=== PATIENT | male | born 1970 | race Caucasian/White ===

== ENCOUNTER 2023-03-24 07:58 | Emergency (ER) | payer OTHER, SELFPAY ==
[2023-03-24 08:03] VITALS: BP 161/91
--- NOTE | 2023-03-24 08:05 | ED.GENMED ---
History of Present Illness
General
Chief Complaint: Abdominal Pain
Time Seen by Provider: 03/24/23 08:05
Travel History
Have you had any contact with someone who has COVID-19?: No
Do you have any symptoms of coronavirus? Fever > 100 degrees, chills, cough, shortness of breath, sore throat, loss of taste or smell, muscle aches, or headache?: No
History of Present Illness
History of Present Illness:
HPI: Patient presents with abdominal pain. The pain is primarily localized to the right upper quadrant. He states he has had right upper quadrant pain in the past but this is different. He tells me that he had a lesion on his liver in September and
spoke to a GI friend of his at [place] who recommended that he has repeat CT imaging for further evaluation. The patient has no nausea or vomiting. He has chronic lightheadedness over the past 9 months. He also has some discomfort in the lower
extremities and did have an EMG in the past. He states he drinks 1 or 2 beers daily.
EXAM:
GENERAL: Well appearing in no distress
HEENT: Moist oral mucosa
CARDIOVASCULAR: No murmurs, normal heart rate and rhythm, No chest wall tenderness
PULMONARY: No respiratory distress, breath sounds are clear and equal
ABDOMEN: Soft with no peritoneal signs, minimal right upper quadrant tenderness
NEUROLOGIC: Excellent strength all extremities, no coordination deficits
PSYCHIATRIC: Appropriate mental status, normal insight and judgement
EXTREMITIES: Nontender, no edema, moves all extremities equally
SKIN: Small pruritic lesions to the lower extremities mild
ED COURSE:
8:15 AM: I initially evaluated patient
NUMBER AND COMPLEXITY OF PROBLEMS ADDRESSED AT THE ENCOUNTER
� Chronic conditions affecting care: High blood pressure, hyperlipidemia, history of daily alcohol use
� Acute Exacerbation and/or Progression of Chronic Illness: This is an acute problem
� Differential Diagnosis includes: Biliary colic, cholecystitis, worsening liver lesion as previously seen
AMOUNT AND/OR COMPLEXITY OF DATA TO BE REVIEWED AND ANALYZED
� I performed an independent evaluation of and my interpretation is:
EKG: Sinus 85, normal axis, baseline artifact, no acute ST abnormality, no change from 02/25/2023
CT: CT imaging shows stable in appearance of liver lesions the larger of which suggest hemangioma
X-rays:
Laboratory Studies: CBC normal, mild transaminase elevation similar to prior, normal total bili and normal lipase
Other:
� Review of other/old records: Abdominal ultrasound on 11/11/2022 showed no gallstones with mild gallbladder wall thickening; he had a CT that same day that showed no PE
� Clinical information was obtained by an independent historian: None needed
� Prescriptions/Medications Considered but not given:
� Further testing considered but not performed:
RISK OF COMPLICATIONS AND/OR MORBIDITY OR MORTALITY OF PATIENT MANAGEMENT
� Social determinants of health affecting care: Lives at home, drinks 1-2 beers daily
� Discussion with other providers:
� Escalation of care including admission/observation vs risk of discharge considered: The patient states he was concerned about a lesion that he had on his liver that was seen this past September. The records show that the patient
had what appeared to be a small hemangioma. The patient denies any chest pain. However given the location of the pain will obtain EKG. on reassessment at 12 PM, the patient is well-appearing and comfortable. He even thinks that his symptoms could
be 'in my head'. He is very well-appearing at time of discharge. He did note a small rash that has a petechial kind of appearance to the bilateral lower extremities however his platelet count is normal and he is well-appearing..
Past History
Past History
ED Past Medical History: HTN, Hypercholesterolemia, Psychiatric (anxiety) and Other (Seasonal allergies, anxiety/depression, long history of dizziness and vertigo.); Negative NIDDM
ED Past Surgical History: None
Social History
Tobacco: Smoker
Alcohol: Daily ('6-12' beers daily)
Drug: None
Personal:
Living: with family
Employment: Employed
Family History
Family History: Negative Early CAD
Phy Exam
Physical Exam
Physical Exam:
See HPI
Course
Orders/Labs/Results
Orders:
Orders
03/24/23 08:15
CT Abd/pelvis W Iv Cont Urgent
Comment:
Reason For Exam: R pain; had lesion R liver 09/2022
03/24/23 08:16
Electrocardiogram (*1) Urgent
Reason for Study: Chest Pain
EKG- Treatment ONCE
0.9% Sodium Chloride 1000 ml [Nss] 1,000 ml IV BOLUS
03/24/23 09:10
Complete Blood Count/With Diff Urgent
Comprehensive Metabolic Panel Urgent
Lipase Urgent
Abnormal Lab Results
03/24/23
09:10
MCH 31.9 H pg
(27.0-31.0)
Monocytes % 10.0 H %
(1.7-9.3)
Glucose 132 H mg/dl
(70-99)
AST 73 H U/L
(17-59)
ALT 118 H U/L
(0-50)
03/24/23 09:10
03/24/23 09:10
Vital Signs
Initial and Last Documented VS:
Initial Vital Signs
Temp Pulse Resp BP Pulse Ox
98.0 F 95 18 161/91 98
03/24/23 08:03 03/24/23 08:03 03/24/23 08:03 03/24/23 08:03 03/24/23 08:03
Last Documented Vital Signs
Temp Pulse Resp BP Pulse Ox
98.0 F 80 14 142/89 98
03/24/23 08:03 03/24/23 10:58 03/24/23 10:58 03/24/23 10:58 03/24/23 08:03
*Critical Care Note
Total Time (30-74mins, 75-104mins- exclusive of procedures): Not Applicable
ED Attending Note
-
Portions of this chart may have been created with voice recognition software.� Occasional wrong word or��sound alike� substitutions may have occurred due to the inherent limitations of voice recognition software.
Discharge Plan
Departure
Patient Disposition: Home (Routine Discharge)
Date of Disposition: 03/24/23
Time of Disposition: 11:59
Patient with high blood pressure during this ER visit?: Yes
Discharge Problem:
Abdominal pain
Instructions: Abdominal Pain, BLOOD PRESSURE
Prescriptions:
No Action
alprazolam 0.25 MG tablet
0.25 mg PO BIDPRN MDD P PRN (Reason: ANXIETY)
atorvastatin 20 mg Tablet
20 mg PO DAILY
amlodipine 10 mg tablet
10 mg PO DAILY Qty: 30 0RF
Referrals:
Toya Nails, [Family Provider] -
Activity Restrictions/Additional Instructions:
The cause of your pain is unclear. You have 2 small liver lesions 1 of which looks like a hemangioma, the other 1 is so small the radiologist could not state what he thinks it is but it does not appear to be the cause of your pain. Your platelet
counts are normal. Your liver numbers are slightly abnormal but similar to prior. Return here if worse.
Interventions
Interventions:
*Risk Screen - Suicide Last Done: 03/24/23 08:03
*General Assessment Last Done: 03/24/23 08:03
*Neglect/Abuse Screening Last Done: 03/24/23 08:03
ED- Fall Risk Assessment Last Done: 03/24/23 09:10
WC-Ofnuim-Odnaqtvmwt Assessment Last Done: 03/24/23 09:10
[2023-03-24] MEDS: NSS 1000 IV (09:13)
[2023-03-24 09:35] LABS: % Eosinophils 2.6 % (0-6); % Lymphocytes 41.3 % (20.5-51.1); % Neutrophils 45.1 % (42.2-75.2); Absolute Basophils 0.1 10^3/uL (0-0.2); Absolute Eosinophils 0.1 10^3/uL (0-0.7); Absolute Lymphocytes 2.1 10^3/uL (1.2-3.4); Absolute Monocytes 0.5 10^3/uL (0.1-0.6); Absolute Neutrophils 2.3 10^3/uL (1.4-6.5); Hematocrit 42.9 % (39.0-52.0); Hemoglobin 15.2 g/dL (13.0-18.0); Mean Corp Hgb Conc. 35.4 g/dL (33.0-37.0); Mean Corpuscular Hgb 31.9 pg (27.0-31.0); Mean Corpuscular Volume 90.1 fL (80.0-94.0); Mean Platelet Volume 9.6 fL (7.4-10.4); Nucleated Red Blood Cells % 0 % (-); Platelet Count 164 10^3/uL (130-400); Red Blood Cell Count 4.76 10^6/uL (4.70-6.10); Red Cell Dist. Width 13.3 % (11.5-14.5)
[2023-03-24 09:44] LABS: ALT (SGPT) 118 U/L (0-50); AST (SGOT) 73 U/L (17-59); Albumin 4.7 g/dl (3.5-5.0); Alkaline Phosphatase 70 U/L (38-126); Blood Urea Nitrogen 15 mg/dl (9-20); Calcium 9.9 mg/dl (8.4-10.2); Carbon Dioxide 25 mmol/L (22-30); Chloride 103 mmol/L (98-107); Glucose 132 mg/dl (70-99); Potassium 3.9 mmol/L (3.5-5.1); Sodium 140 mmol/L (135-145); Total Protein 8.2 g/dl (6.3-8.2); eGFR > 60.00
[2023-03-24 10:58] VITALS: BP 142/89
[2023-03-24 11:04] LABS: Lipase 173 U/L (23-300)
[2023-03-24 12:16] VITALS: BP 126/79
[2023-03-24 13:14] LABS: HDL Cholesterol 82 mg/dl; LDL Cholesterol, Calculated 73 mg/dl; Total Cholesterol 171 mg/dl (50-199); Triglyceride 81 mg/dl (10-149); Very Low Density Lipoprotein 16 mg/dl (0-30)
== END 2023-03-24 12:19 | disposition home or self-care (01) ==
LOC: EMR 07:58
PROVIDERS: EMERGENCY PHYSICIAN Emergency Medicine; FAMILY PHYSICIAN Internal Medicine
DX: R10.9 Unspecified abdominal pain (principal); I10 Essential (primary) hypertension; F17.200 Nicotine dependence, unspecified, uncomplicated
CPT/HCPCS: 99285; 74177; 80053; 80061; 83690; 85025; 93005; Q9967

== ENCOUNTER 2023-04-09 08:30 | Emergency (ER) | payer OTHER, SELFPAY ==
[2023-04-09 08:32] VITALS: BP 157/96
--- NOTE | 2023-04-09 08:54 | ED.GENMED ---
History of Present Illness
General
Chief Complaint: Fall
Time Seen by Provider: 04/09/23 08:53
Travel History
Have you had any contact with someone who has COVID-19?: No
Do you have any symptoms of coronavirus? Fever > 100 degrees, chills, cough, shortness of breath, sore throat, loss of taste or smell, muscle aches, or headache?: No
History of Present Illness
History of Present Illness:
HPI: Patient presents due to a fall on ice. He states that he injured the lateral aspect of the right thigh but also struck his head on the lateral right side. He is not on anticoagulation or antiplatelets. He does report some increased headache
and has some new nausea. Of note, the patient was seen here recently with abdominal pain and states he feels significant proved after he had a bowel movement.
EXAM:
GENERAL: Well appearing in no distress
CERVICAL SPINE: No midline c-spine tenderness with excellent AROM
HEAD: No evidence of craniofacial trauma
CHEST: No chest wall tenderness, normal heart sounds
LUNGS: Equal lung sounds, no respiratory distress
ABDOMEN: No abdominal tenderness, no peritoneal signs
EXTREMITIES: Normal active range of motion, no tenderness
NEURO: Excellent strength all extremities, appropriate mental status, normal speech/language
ED COURSE:
9 AM: I initially evaluated patient
NUMBER AND COMPLEXITY OF PROBLEMS ADDRESSED AT THE ENCOUNTER
� Chronic conditions affecting care: High blood pressure, hyperlipidemia, alcohol use, anxiety
� Acute Exacerbation and/or Progression of Chronic Illness: This is an acute problem
� Differential Diagnosis includes: Femur fracture, intracranial hemorrhage, minor head injury, concussion
AMOUNT AND/OR COMPLEXITY OF DATA TO BE REVIEWED AND ANALYZED
� I performed an independent evaluation of and my interpretation is:
EKG:
CT: CT brain unremarkable
X-rays: I personally reviewed x-ray of the right femur which shows no acute abnormality
Laboratory Studies:
Other:
� Review of other/old records: I reviewed the lab work from 2 weeks ago which was relatively unremarkable
� Clinical information was obtained by an independent historian: None needed
� Prescriptions/Medications Considered but not given:
� Further testing considered but not performed:
RISK OF COMPLICATIONS AND/OR MORBIDITY OR MORTALITY OF PATIENT MANAGEMENT
� Social determinants of health affecting care:
� Discussion with other providers:
� Escalation of care including admission/observation vs risk of discharge considered: Given patient's age along with striking his head rather hard along with new nausea, will obtain CT imaging of the brain. X-ray of the right
femur unremarkable. On reassessment just prior to discharge the patient has no new symptoms and does not feel like it is in a fog and overall feels improved. Relatively low suspicion for concussion. Suspect minor head injury.
Past History
Past History
ED Past Medical History: HTN, Hypercholesterolemia, Psychiatric (anxiety) and Other (Seasonal allergies, anxiety/depression, long history of dizziness and vertigo.); Negative NIDDM
ED Past Surgical History: None
Social History
Tobacco: Smoker
Alcohol: Daily ('6-12' beers daily)
Drug: None
Personal:
Living: with family
Employment: Employed
Family History
Family History: Negative Early CAD
Phy Exam
Physical Exam
Physical Exam:
See HPI
Course
Orders/Labs/Results
Orders:
Orders
04/09/23 08:37
CR Femur - Right Min 2 Vw Urgent
Reason For Exam: injury/Pain
04/09/23 09:02
CT Head W/o Iv Contrast Urgent
Comment:
Reason For Exam: trauma nausea worse GARCIA
Vital Signs
Initial and Last Documented VS:
Initial Vital Signs
Temp Pulse Resp BP Pulse Ox
98.3 F 97 18 157/96 100
04/09/23 08:32 04/09/23 08:32 04/09/23 08:32 04/09/23 08:32 04/09/23 08:32
Last Documented Vital Signs
Temp Pulse Resp BP Pulse Ox
98.3 F 97 18 157/96 100
04/09/23 08:32 04/09/23 08:32 04/09/23 08:32 04/09/23 08:32 04/09/23 08:32
*Critical Care Note
Total Time (30-74mins, 75-104mins- exclusive of procedures): Not Applicable
ED Attending Note
-
Portions of this chart may have been created with voice recognition software.� Occasional wrong word or��sound alike� substitutions may have occurred due to the inherent limitations of voice recognition software.
Discharge Plan
Departure
Patient Disposition: Home (Routine Discharge)
Date of Disposition: 04/09/23
Time of Disposition: 09:52
Patient with high blood pressure during this ER visit?: Yes
Discharge Problem:
Head injury, Fall, Contusion of right thigh
Instructions: Head Injury in Adults (DC), Contusion (DC), BLOOD PRESSURE
Prescriptions:
No Action
alprazolam 0.25 MG tablet
0.25 mg PO BIDPRN MDD P PRN (Reason: ANXIETY)
atorvastatin 20 mg Tablet
20 mg PO DAILY
amlodipine 10 mg tablet
10 mg PO DAILY Qty: 30 0RF
Referrals:
Toya Nails DO [Family Provider] -
Activity Restrictions/Additional Instructions:
The x-ray of the right femur (thigh bone) and the CAT scan of the brain showed no acute abnormality. Return here if worse. Follow-up your primary care doctor.
Interventions
Interventions:
*Risk Screen - Suicide Last Done: 04/09/23 08:32
*General Assessment Last Done: 04/09/23 10:15
*Neglect/Abuse Screening Last Done: 04/09/23 08:32
*ED COVID-19 Vaccine History Last Done: 04/09/23 08:32
*Nursing Disposition Last Done: 04/09/23 10:15
ED-Musculoskeletal Assessment Last Done: 04/09/23 10:00
ED- Neurological Assessment Last Done: 04/09/23 10:00
ED-Skin Assessment Last Done: 04/09/23 10:00
Discharge Date and Time
Discharge Date/Time: 04/09/23 10:23
== END 2023-04-09 10:23 | disposition home or self-care (01) ==
LOC: EMR 08:30
PROVIDERS: EMERGENCY PHYSICIAN Emergency Medicine; FAMILY PHYSICIAN Internal Medicine
DX: S09.90XA Unspecified injury of head, initial encounter (principal); S70.11XA Contusion of right thigh, initial encounter; W00.0XXA Fall on same level due to ice and snow, initial encounter; I10 Essential (primary) hypertension; E78.00 Pure hypercholesterolemia, unspecified; F41.9 Anxiety disorder, unspecified; F32.A Depression, unspecified; F17.200 Nicotine dependence, unspecified, uncomplicated
CPT/HCPCS: 99284; 70450; 73552

== ENCOUNTER 2023-10-01 07:29 | Outpatient (RCR) | payer OTHER, SELFPAY | END 2023-10-01 23:59 | disposition home or self-care (01) | LOC: RPT 07:29 | PROVIDERS: ATTENDING PHYSICIAN Otolaryngology; FAMILY PHYSICIAN Internal Medicine | DX: R42 Dizziness and giddiness (principal); Z73.6 Limitation of activities due to disability | CPT/HCPCS: 97112; 97162 ==

== ENCOUNTER 2023-12-03 08:16 | Outpatient (RCR) | payer OTHER, SELFPAY | END 2023-12-03 23:59 | disposition home or self-care (01) | LOC: RPT 08:16 | PROVIDERS: ATTENDING PHYSICIAN Otolaryngology; FAMILY PHYSICIAN Internal Medicine | DX: R42 Dizziness and giddiness (principal); Z73.6 Limitation of activities due to disability | CPT/HCPCS: 97112 ==

== ENCOUNTER → 2023-12-30 14:08 | Outpatient (REF) | payer OTHER, SELFPAY | LOC: MRI 3T 14:08 | PROVIDERS: ATTENDING PHYSICIAN Otolaryngology; FAMILY PHYSICIAN Family Medicine | DX: R42 Dizziness and giddiness (principal) | CPT/HCPCS: 70553; A9575 ==

== ENCOUNTER 2024-04-12 12:08 | Emergency (ER) | payer OTHER, SELFPAY ==
[2024-04-12 12:12] VITALS: BP 160/92
[2024-04-12 12:33] LABS: % Basophils 1.1 % (0-2); % Eosinophils 3.2 % (0-6); % Immature Granulocytes 0.2 % (0-0.5); % Lymphocytes 43.1 % (20.5-51.1); % Monocytes 9.2 % (1.7-9.3); % Neutrophils 43.2 % (42.2-75.2); Absolute Basophils 0.1 10^3/uL (0-0.2); Absolute Eosinophils 0.2 10^3/uL (0-0.7); Absolute Lymphocytes 2.7 10^3/uL (1.2-3.4); Absolute Monocytes 0.6 10^3/uL (0.1-0.6); Absolute Neutrophils 2.7 10^3/uL (1.4-6.5); Hemoglobin 15.4 g/dL (13.0-18.0); Mean Corpuscular Hgb 32.3 pg (27.0-31.0); Mean Corpuscular Volume 92.2 fL (80.0-94.0); Mean Platelet Volume 9.9 fL (7.4-10.4); Nucleated Red Blood Cells % 0 % (-); Platelet Count 150 10^3/uL (130-400); Red Blood Cell Count 4.77 10^6/uL (4.70-6.10); Red Cell Dist. Width 13.4 % (11.5-14.5); White Blood Cell Count 6.2 10^3/uL (4.8-10.8)
[2024-04-12 12:52] LABS: ALT (SGPT) 87 U/L (0-50); AST (SGOT) 70 U/L (17-59); Albumin 4.9 g/dl (3.5-5.0); Alkaline Phosphatase 69 U/L (38-126); Blood Urea Nitrogen 11 mg/dl (9-20); Carbon Dioxide 26 mmol/L (22-30); Chloride 104 mmol/L (98-107); Glucose 114 mg/dl (70-99); Potassium 4.4 mmol/L (3.5-5.1); Sodium 139 mmol/L (135-145); Total Protein 8.7 g/dl (6.3-8.2); eGFR > 60.00
[2024-04-12 13:00] LABS: Troponin I < 0.012 ng/ml
--- NOTE | 2024-04-12 13:38 | ED.GENMED ---
History of Present Illness
General
Chief Complaint: Chest Pain
Source: patient
Exam Limitations: none
Time Seen by Provider: 04/12/24 13:22
Nursing documentation reviewed up to this point in time: agreed with
History of Present Illness
History of Present Illness:
Patient presents to ED secondary to sudden onset of chest pain which woke the patient up from sleep at midnight, lasting approximately 3 hours. Chest pain described as pressure, nonradiating, without any alleviating or exacerbate factors. Denies
associated shortness of breath, diaphoresis, dizziness, with nausea. Denies direct trauma. Denies back pain. Denies leg pain or swelling. Denies recent travel or surgery. Denies previous history of similar symptoms. There is no family history
of heart disease. Patient does not smoke or drink alcohol. Denies recent illness. Patient does not have any chest pain at time of evaluation ED.
Past History
Past History
ED Past Medical History: HTN, Hypercholesterolemia, Psychiatric (anxiety) and Other (Seasonal allergies, anxiety/depression, long history of dizziness and vertigo.); Negative NIDDM
ED Past Surgical History: None
Social History
Tobacco: Smoker
Alcohol: Daily ('6-12' beers daily)
Drug: None
Personal:
Living: with family
Employment: Employed
Family History
Family History: Negative Early CAD
Review of Systems
Review of Systems
Allergies reviewed?: Yes
All Other Systems: ROS reviewed and negative except as documented in HPI and ROS
Constitutional: Reports no symptoms
EENT: Reports no symptoms
Respiratory: Reports no symptoms; Denies trouble breathing
Cardiac: Reports chest pain; Denies diaphoresis or palpitations
ABD/GI: Reports no symptoms; Denies nausea
Musculoskeletal: Reports no symptoms
Skin: Reports no symptoms
Neurological: Reports no symptoms
Phy Exam
Physical Exam
Physical Exam:
Physical Exam
General: no apparent distress, not acutely ill. afebrile
Head: nc/at. eomi
Neck: supple. normal range of motion.
Heart: s1/s2 regular rate and rhythm, no murmur.
Lungs: no acute respiratory distress. clear bilaterally
Abdomen: normal bowel sounds. not tender.
Neuro: alert and oriented x 3. no focal neurological deficits
Skin: no rash
Psychiatric: well kept. interactive and cooperative
Extremities: no edema. no calf tenderness.
Scores
Heart Score for Chest Pain Patients
STEMI patient?: No
History: Slightly or Non-Suspicious
ECG: Normal
Age: >45 - <65 years
Risk Factors: 1 or 2 Risk Factors
Troponin: </= Normal Limit
Heart Score for Chest Pain Patients: 2
Heart Score Risk: 2.5% MACE over next 6 weeks
Course
Orders/Labs/Results
Orders:
Orders
04/12/24 12:09
ECG [Electrocardiogram (*1)] Urgent
Reason for Study: Chest Pain
04/12/24 12:10
EKG- Treatment ONCE
04/12/24 12:18
Complete Blood Count/With Diff Urgent
Comprehensive Metabolic Panel Urgent
Lipase Urgent
Comment: ADD ON
Troponin I Urgent
04/12/24 13:37
Add On- LAB Urgent
Tests Added?: lipase
04/12/24 13:52
EKG- Treatment ONCE
CR Chest - 2 Views Urgent
Comment:
Reason For Exam: chest pain
04/12/24 15:00
Electrocardiogram (*1) Urgent
Reason for Study: Chest Pain
04/12/24 15:05
Troponin I Urgent
Abnormal Lab Results
04/12/24
12:18
MCH 32.3 H pg
(27.0-31.0)
Glucose 114 H mg/dl
(70-99)
AST 70 H U/L
(17-59)
ALT 87 H U/L
(0-50)
Total Protein 8.7 H g/dl
(6.3-8.2)
04/12/24 12:18
04/12/24 12:18
Vital Signs
Initial and Last Documented VS:
Initial Vital Signs
Temp Pulse Resp BP Pulse Ox
98.0 F 80 20 160/92 96
04/12/24 12:12 04/12/24 12:12 04/12/24 12:12 04/12/24 12:12 04/12/24 12:12
Last Documented Vital Signs
Temp Pulse Resp BP Pulse Ox
98.0 F 67 18 135/81 96
04/12/24 12:12 04/12/24 16:00 04/12/24 16:00 04/12/24 14:12 04/12/24 12:12
MDM/Problems Addressed
MDM/Problems Addressed:
Patient with an unremarkable workup in ED, including repeat his blood work, EKG, and chest x-ray. Patient also remains hemodynamically stable and asymptomatic during observation. Patient's presenting symptoms less likely cardiac in etiology, but
more likely secondary to reflux versus esophagitis, as patient had late meals prior to going to sleep. Patient will be discharged home in stable condition, with recommendation to follow-up with his primary conservation coordinator at her [facility] for
reevaluation, along with consideration to take PPI as an outpatient daily.
*EKG
Interpreted by ED Provider?: Yes
EKG Intrepretation Date: 04/12/24
Heart Rate: 79
Rate: normal
Rhythm: sinus
[place]: normal axis
Interval: normal interval
*Critical Care Note
Total Time (30-74mins, 75-104mins- exclusive of procedures): Not Applicable
ED Attending Note
-
Portions of this chart may have been created with voice recognition software.� Occasional wrong word or��sound alike� substitutions may have occurred due to the inherent limitations of voice recognition software.
Discharge Plan
Departure
Patient Disposition: Home (Routine Discharge)
Date of Disposition: 04/12/24
Time of Disposition: 16:34
Patient with high blood pressure during this ER visit?: Yes
Discharge Problem:
Chest pain
Instructions: Chest Pain NON-[facility] Asset Protection Specialist Follow Up
Prescriptions:
No Action
alprazolam 0.25 MG tablet
0.25 mg PO BIDPRN MDD P PRN (Reason: ANXIETY)
atorvastatin 20 mg Tablet
20 mg PO DAILY
amlodipine 10 mg tablet
10 mg PO DAILY Qty: 30 0RF
Referrals:
Toya Nails DO [Family Provider] -
Activity Restrictions/Additional Instructions:
As discussed, please follow-up with your primary care physician and/or conservation coordinator for reevaluation.
Interventions
Interventions:
*Risk Screen - Suicide Last Done: 04/12/24 12:12
*Nursing Disposition Last Done: 04/12/24 16:56
Discharge Date and Time
Discharge Date/Time: 04/12/24 16:56
Print Language: WOLOF
[2024-04-12 14:12] VITALS: BP 135/81
[2024-04-12 14:47] LABS: Lipase 139 U/L (23-300)
[2024-04-12 15:37] LABS: Troponin I < 0.012 ng/ml
== END 2024-04-12 16:56 | disposition home or self-care (01) ==
LOC: EMR 12:08
PROVIDERS: Emergency Medicine; EMERGENCY PHYSICIAN Emergency Medicine; FAMILY PHYSICIAN Internal Medicine
DX: R07.89 Other chest pain (principal); I10 Essential (primary) hypertension; E78.00 Pure hypercholesterolemia, unspecified; F41.8 Other specified anxiety disorders; F17.200 Nicotine dependence, unspecified, uncomplicated
CPT/HCPCS: 99283; 71046; 80053; 83690; 84484; 85025; 93005

== ENCOUNTER 2024-08-03 08:24 | Emergency (ER) | payer OTHER, SELFPAY ==
[2024-08-03 08:29] VITALS: BP 153/82
--- NOTE | 2024-08-03 09:21 | ED.GENMED ---
History of Present Illness
General
Chief Complaint: Rectal Bleeding
Source: patient
Time Seen by Provider: 08/03/24 08:59
History of Present Illness
History of Present Illness:
53-year-old male presents to the emergency room complaining of passing blood from his rectum. Patient has had a couple episodes over the past few days where he has had blood per rectum. Patient states that he has also had normal bowel movements in
between. The last time he noticed any blood was yesterday afternoon. Last evening he had a bowel movement that did not have any blood. When it occurs there is a fair amount of blood which stains the water and makes the toilet paper looked bloody.
Patient denies any abdominal pain. He has chronic dizziness from a vestibular issue but no significant plant changer the past couple days. No nausea vomiting.
Past History
Past History
ED Past Medical History: HTN, Hypercholesterolemia, Psychiatric (anxiety) and Other (Seasonal allergies, anxiety/depression, long history of dizziness and vertigo.); Negative NIDDM
ED Past Surgical History: None
Social History
Tobacco: Smoker
Alcohol: Daily ('6-12' beers daily)
Drug: None
Personal:
Living: with family
Employment: Employed
Family History
Family History: Negative Early CAD
Phy Exam
Physical Exam
Physical Exam:
General: Awake, Alert, Oriented X3. No acute distress.
Vitals: unremarkable
Head: Atraumatic
Eyes: Pupils equal, EOMI
Throat: Airway intact, no exudates
Neck: Trachea midline
Lungs: Clear and equal b/l
Heart: Regular rate, no murmurs
Abd: Soft, Nontender, No pulsatile mass
Rectal: Mild erythema of the perianal area, no external hemorrhoids, no blood on digital rectal exam
Neuro: Nonfocal
Skin: Warm, dry, no rash
Extremities: pulses equal b/l, no edema
Course
Orders/Labs/Results
Orders:
Orders
08/03/24 09:52
Complete Blood Count/With Diff Urgent
Comprehensive Metabolic Panel Urgent
Abnormal Lab Results
08/03/24
09:52
RBC 4.68 L 10^6/uL
(4.70-6.10)
MCH 32.5 H pg
(27.0-31.0)
Monocytes % 11.1 H %
(1.7-9.3)
Chloride 108 H mmol/L
(98-107)
Glucose 146 H mg/dl
(70-99)
AST 63 H U/L
(17-59)
ALT 90 H U/L
(0-50)
08/03/24 09:52
08/03/24 09:52
Vital Signs
Initial and Last Documented VS:
Initial Vital Signs
Temp Pulse Resp BP Pulse Ox
98.5 F 83 18 153/82 96
08/03/24 08:29 08/03/24 08:29 08/03/24 08:29 08/03/24 08:29 08/03/24 08:29
Last Documented Vital Signs
Temp Pulse Resp BP Pulse Ox
98.5 F 74 20 143/85 99
08/03/24 08:29 08/03/24 11:00 08/03/24 11:00 08/03/24 11:00 08/03/24 11:00
MDM/Problems Addressed
Differential Diagnosis Includes:
Internal hemorrhoids, external hemorrhoids, ulcer colitis, diverticulosis
MDM/Problems Addressed:
Patient presents with episodic blood per rectum. He is hemodynamically stable. His exam is benign. Clinically sounds more like internal hemorrhoids. Will check labs. No imaging necessary at this time with a benign abdominal exam. Will have him
follow-up with colorectal surgery
*Pulse Oximetry
Patient hypoxic: no
Comment: 99
*Critical Care Note
Total Time (30-74mins, 75-104mins- exclusive of procedures): Not Applicable
ED Attending Note
-
Portions of this chart may have been created with voice recognition software.� Occasional wrong word or��sound alike� substitutions may have occurred due to the inherent limitations of voice recognition software.
Discharge Plan
Departure
Patient Disposition: Home (Routine Discharge)
Date of Disposition: 08/03/24
Time of Disposition: 10:35
Patient with high blood pressure during this ER visit?: Yes
Condition: Good
Discharge Problem:
Rectal bleeding, Internal hemorrhoid
Instructions: Bloody Stools, Adult ED, Hemorrhoids - ED discharge instructions, BLOOD PRESSURE
Prescriptions:
No Action
alprazolam 0.25 MG tablet
0.25 mg PO BIDPRN MDD P PRN (Reason: ANXIETY)
atorvastatin 20 mg Tablet
20 mg PO DAILY
amlodipine 10 mg tablet
10 mg PO DAILY Qty: 30 0RF
Referrals:
Tommy Carlin MD [Active, [facility]]
Toya Nails DO [Family Provider, Family Practice]
Interventions
Interventions:
*Risk Screen - Suicide Last Done: 08/03/24 08:31
*General Assessment Last Done: 08/03/24 08:31
*Neglect/Abuse Screening Last Done: 08/03/24 08:31
*Nursing Disposition Last Done: 08/03/24 11:46
CT-Cmqomn-Voeivvjnaf Assessment Last Done: 08/03/24 10:00
ED- Cardiac Assessment Last Done: 08/03/24 10:00
ED- Pulmonary Assessment Last Done: 08/03/24 10:00
Discharge Date and Time
Discharge Date/Time: 08/03/24 11:47
Print Language: GHANAIAN
[2024-08-03 10:00] LABS: % Basophils 1.2 % (0-2); % Eosinophils 2.3 % (0-6); % Immature Granulocytes 0.2 % (0-0.5); % Lymphocytes 37.9 % (20.5-51.1); % Monocytes 11.1 % (1.7-9.3); % Neutrophils 47.3 % (42.2-75.2); Absolute Basophils 0.1 10^3/uL (0-0.2); Absolute Eosinophils 0.1 10^3/uL (0-0.7); Absolute Lymphocytes 1.9 10^3/uL (1.2-3.4); Absolute Monocytes 0.5 10^3/uL (0.1-0.6); Absolute Neutrophils 2.3 10^3/uL (1.4-6.5); Hematocrit 42.7 % (39.0-52.0); Hemoglobin 15.2 g/dL (13.0-18.0); Mean Corp Hgb Conc. 35.6 g/dL (33.0-37.0); Mean Corpuscular Hgb 32.5 pg (27.0-31.0); Mean Corpuscular Volume 91.2 fL (80.0-94.0); Mean Platelet Volume 9.7 fL (7.4-10.4); Nucleated Red Blood Cells % 0 % (-); Platelet Count 158 10^3/uL (130-400); Red Blood Cell Count 4.68 10^6/uL (4.70-6.10); Red Cell Dist. Width 13.1 % (11.5-14.5); White Blood Cell Count 4.9 10^3/uL (4.8-10.8)
[2024-08-03 10:23] LABS: ALT (SGPT) 90 U/L (0-50); AST (SGOT) 63 U/L (17-59); Albumin 4.8 g/dl (3.5-5.0); Alkaline Phosphatase 68 U/L (38-126); Blood Urea Nitrogen 12 mg/dl (9-20); Calcium 9.7 mg/dl (8.4-10.2); Carbon Dioxide 25 mmol/L (22-30); Chloride 108 mmol/L (98-107); Glucose 146 mg/dl (70-99); Sodium 140 mmol/L (135-145); Total Bilirubin 0.9 mg/dl (0.2-1.3); Total Protein 8.2 g/dl (6.3-8.2); eGFR > 60.00
[2024-08-03 11:00] VITALS: BP 143/85
[2024-08-03 11:34] VITALS: BP 143/85
== END 2024-08-03 11:47 | disposition home or self-care (01) ==
LOC: EMR 08:24
PROVIDERS: EMERGENCY PHYSICIAN Emergency Medicine; FAMILY PHYSICIAN Internal Medicine
DX: K62.5 Hemorrhage of anus and rectum (principal); K64.8 Other hemorrhoids; I10 Essential (primary) hypertension; E78.00 Pure hypercholesterolemia, unspecified; F17.200 Nicotine dependence, unspecified, uncomplicated
CPT/HCPCS: 99283; 80053; 85025

== ENCOUNTER 2024-09-14 07:04 | Outpatient (RCR) | payer OTHER, SELFPAY | END 2024-09-14 23:59 | disposition home or self-care (01) | LOC: RPT 07:04 | PROVIDERS: ATTENDING PHYSICIAN Internal Medicine | DX: R42 Dizziness and giddiness (principal); Z73.6 Limitation of activities due to disability; R26.2 Difficulty in walking, not elsewhere classified; R26.89 Other abnormalities of gait and mobility | CPT/HCPCS: 97112; 97162 ==

== ENCOUNTER 2024-11-16 08:08 | Emergency (ER) | payer OTHER, SELFPAY ==
[2024-11-16 08:09] VITALS: BP 161/100
--- NOTE | 2024-11-16 08:39 | ED.GENMED ---
History of Present Illness
General
Chief Complaint: Dizziness
Time Seen by Provider: 11/16/24 08:20
Nursing documentation reviewed up to this point in time: agreed with
History of Present Illness
History of Present Illness:
54-year-old male presents to the ER for further evaluation of dizziness, vertigo, intermittent headaches. Patient admits that for the last 2-1/2 years he has been having issues with vertigo, dizziness and increased anxiety. He has had extensive
prior workup including MRIs and CT of his brain. He has been in touch with neurology and had previously been in follow-up with vestibular therapy. He states that he last saw his neurologist 2 weeks ago. He was taken off Lexapro at that time and
initiated on amitriptyline. He states that he took this for 3 days and did not like how it made him feel. He contacted his neurologist and stopped taking the medication. He denies any recent illness. He does have seasonal allergies but does not
take medications for these symptoms of nasal congestion. He denies otalgia today. He has chronic poor vision, no acute changes. He denies any recent syncope or trauma. He denies any weakness or paresthesias. He describes his headaches as an
intermittent brief electrical discomfort along the right side of his head. He admits to having increasing anxiety and has been looking online at his symptoms in his very concerned that he may have a brain tumor. He states that his neurologist had
offered him a CAT scan 2 weeks ago, but he had felt reassured at that time. He no longer feels reassured and would like to pursue neuroimaging. No fevers. No reported recent sick contacts. Patient does admit to drinking alcohol daily. He states
that he had blood work done 3 weeks ago showing mild LFT elevation, otherwise normal.
Past History
Past History
ED Past Medical History: HTN, Hypercholesterolemia, Psychiatric (anxiety) and Other (Seasonal allergies, anxiety/depression, long history of dizziness and vertigo.); Negative NIDDM
ED Past Surgical History: None
Social History
Tobacco: Smoker
Alcohol: Daily ('6-12' beers daily)
Drug: None
Personal:
Living: with family
Employment: Employed
Family History
Family History: Negative Early CAD
Phy Exam
Physical Exam
Physical Exam:
Patient is awake, alert, appears in no acute distress, zoraida complexion, wearing glasses, head is NCAT, PERRL, bilateral tympanic membranes with mild serous effusion, no erythema, no dullness, external auditory canals within normal limits, posterior
pharynx with mild diffuse cobblestoning, no tonsillar exudates, no asymmetry, EOMI mucous membranes moist, conjunctiva pink, heart regular rate and rhythm without murmurs or ectopy, lungs are clear to auscultation without wheezes rales or rhonchi,
no JVD, abdomen is soft and nontender on palpation, extremities without edema, GCS is 15, no dysdiadochokinesia, no ataxia, no pronator drift
NIH Stroke Score
Level of Consciousness: 0 - Alert
LOC questions: 0-Answers both correctly
LOC Commands: 0-Performs both correctly
Best Gaze: 0-Normal
Visual Figueroa: 0=Normal, no visual loss
Facial palsy: 0=Normal, symmetrical
Motor - Right Arm: 0=No drift 10 seconds
Motor - Left Arm: 0=No drift 10 seconds
Motor - Right Le-No drift 5 seconds
Motor - Left Le-No drift 5 seconds
Limb Ataxia: 0-Absent
Sensation: 0-Normal
Best Language: 0-No aphasia
Dysarthria: 0-Normal
Extinction and Inattention: 0-No abnormality
Total Score:: 0
Course
Orders/Labs/Results
Orders:
Orders
11/16/24 08:37
CT Head W/o Iv Contrast Urgent
Comment:
Reason For Exam: vertigo
11/16/24 09:00
Oxymetazoline HCl [Afrin Nasal [place]] See Dose Instructions NASAL BID
Labs considered but not ordered given they had recently been completed as an outpatient
Vital Signs
Initial and Last Documented VS:
Initial Vital Signs
Temp Pulse Resp BP Pulse Ox
98.1 F 97 16 161/100 98
11/16/24 08:09 11/16/24 08:09 11/16/24 08:09 11/16/24 08:09 11/16/24 08:09
Last Documented Vital Signs
Temp Pulse Resp BP Pulse Ox
98.1 F 97 16 161/100 98
11/16/24 08:09 11/16/24 08:09 11/16/24 08:09 11/16/24 08:09 11/16/24 08:45
MDM/Problems Addressed
Differential Diagnosis Includes:
Differential diagnosis to consider but not limited to exacerbation of chronic vestibular neuropathy, anxiety, occipital neuralgia, anxiety, alcohol use disorder along with other etiologies considered
*Radiology
Radiology exam reviewed: preliminary read by ED provider (I dependently viewed and interpreted noncontrast CT of the head showing no midline shift, no gross hemorrhage) and radiology read reviewed (IMPRESSION: No acute intracranial abnormality
noted.)
*Pulse Oximetry
SaO2: 98
Oxygen Mode of Delivery: Room air
Patient hypoxic: no
*Critical Care Note
Total Time (30-74mins, 75-104mins- exclusive of procedures): Not Applicable
Update Note
Update Note:
I counseled patient at length regarding very normal exam. We discussed treatment options. I counseled patient on benefit of utilizing [id number] antihistamine along with nasal steroid spray to help with allergic rhinitis to prevent
exacerbation of his vertigo symptoms. I discussed with patient coexisting anxiety as an exacerbating factor for all of his symptoms. I discussed with patient benefit of treatment for his alcohol use in order to prevent worsening of his symptoms
and limited efficacy of his prescription medications including Xanax which he states he takes occasionally, not regularly. Given patient's severe anxiety associated with idea that he may have an intracranial mass, will check CT of the head today.
Will also give one-time dose of Afrin to help with nasal congestion while awaiting test results. Will reassess
0956: I reviewed with patient very reassuring CT of the head. He had some improvement of his nasal congestion with Afrin spray. I discussed with him limited use of Afrin given his prior history of hypertension. We discussed use of Claritin and
Flonase nasal spray to help minimize allergic rhinitis as additive effect of his underlying vertigo. Patient also tells me he occasionally experiences groin pain/back pain radiating to his right groin. On physical exam I do not feel any hernia,
there is no erythema, no masses. I discussed patient this is likely lumbar radiculopathy. He states he has chronic back pain and is very sedentary with his job. We discussed at length the benefits of outdoor physical activity. We also discussed
alternative modalities of including physical activity including a seated bike versus indoor cycling versus walking with his family and the overall health benefits of becoming more physically active, in particular given his high levels of stress and
anxiety at the current time. I discussed with him benefit of following up with PCP to review all of the results today, his ongoing symptoms, and possible referral for therapy for assistance with his alcohol use and his anxiety. Patient expressed
understanding of discharge instructions and has no questions at the current time.
ED Attending Note
-
Portions of this chart may have been created with voice recognition software.� Occasional wrong word or��sound alike� substitutions may have occurred due to the inherent limitations of voice recognition software.
Discharge Plan
Departure
Patient Disposition: Home (Routine Discharge)
Date of Disposition: 11/16/24
Time of Disposition: 09:54
Patient with high blood pressure during this ER visit?: Yes
Discharge Problem:
Dizziness, Anxiety
Instructions: Alcohol use - When is drinking a problem?, Dizziness in adults - ED (DC), Anxiety in adults - ED (DC)
Prescriptions:
No Action
alprazolam 0.25 MG tablet
0.25 mg PO BIDPRN MDD P PRN (Reason: ANXIETY)
atorvastatin 20 mg Tablet
20 mg PO DAILY
amlodipine 10 mg tablet
10 mg PO DAILY Qty: 30 0RF
Referrals:
Toya Nails DO [Family Provider, Family Practice]
Activity Restrictions/Additional Instructions:
Continue your current medications. Please use Flonase and Claritin or generic equivalent is available [id number] daily as per package instructions until you are seen in follow-up with your primary care physician. Please contact your primary
care doctor today to schedule appointment to discuss all of your symptoms, including need to become more physically active, additional support with treating your anxiety and your dizziness
Interventions
Interventions:
*Risk Screen - Suicide Last Done: 11/16/24 08:09
*General Assessment Last Done: 11/16/24 09:13
*Neglect/Abuse Screening Last Done: 11/16/24 08:09
*ED- Fall Risk Assessment Last Done: 11/16/24 09:13
*ED COVID-19 Vaccine History Last Done: 11/16/24 09:13
ED- Neurological Assessment Last Done: 11/16/24 09:12
ED- Cardiac Assessment Last Done: 11/16/24 09:12
Discharge Date and Time
Print Language: GUAMANIAN
[2024-11-16] MEDS: AFRIN NASAL SPRAY 4 SPRAYS NASAL (09:10)
[2024-11-16 10:12] VITALS: BP 135/85
== END 2024-11-16 10:05 | disposition home or self-care (01) ==
LOC: EMR 08:08
PROVIDERS: EMERGENCY PHYSICIAN Emergency Medicine; FAMILY PHYSICIAN Internal Medicine
DX: R42 Dizziness and giddiness (principal); F41.9 Anxiety disorder, unspecified; I10 Essential (primary) hypertension; E78.00 Pure hypercholesterolemia, unspecified; F17.200 Nicotine dependence, unspecified, uncomplicated; J30.2 Other seasonal allergic rhinitis
CPT/HCPCS: 99284; 70450

== ENCOUNTER 2024-12-21 07:15 | Emergency (ER) | payer OTHER, SELFPAY ==
[2024-12-21] VITALS (8 sets, daily range): BP systolic 128–153; BP diastolic 77–91; PULSE 75–79; BMI 33.7
--- NOTE | 2024-12-21 08:11 | ED.GENMED ---
History of Present Illness
General
Chief Complaint: Dizziness
Source: patient
Exam Limitations: none
Time Seen by Provider: 12/21/24 07:59
History of Present Illness
History of Present Illness:
54-year-old male with chronic vestibular dizziness presents with a lightheadedness that is different and new from his typical dizziness. He states when he stands up he feels like he is get a pass out. He denies a spinning sensation. He states his
blood pressure has been lower for him lately around 115/65. He denies chest pain. No headache. No double vision. He does admit to drinking 8 beers a day. He thinks he may be dehydrated.
Past History
Past History
ED Past Medical History: HTN, Hypercholesterolemia, Psychiatric (anxiety) and Other (Seasonal allergies, anxiety/depression, long history of dizziness and vertigo.); Negative NIDDM
ED Past Surgical History: None
Social History
Tobacco: Smoker
Alcohol: Daily ('6-12' beers daily)
Drug: None
Personal:
Living: with family
Employment: Employed
Family History
Family History: Negative Early CAD
Phy Exam
Physical Exam
Physical Exam:
General: Well-appearing male no acute respiratory distress
HEENT: Normal cephalic atraumatic no nystagmus pupils equal round reactive to light heart: Regular rate and rhythm
Lungs: Clear no wheeze
Neurologic exam: Alert and oriented no facial asymmetry no drift conversing appropriately
Extremities: No cyanosis or edema.
Course
Orders/Labs/Results
Orders:
Orders
12/21/24 07:28
EKG [Electrocardiogram (*1)] Urgent
Reason for Study: Chest Pain
EKG- Treatment ONCE
12/21/24 08:09
Orthostatic VS- Treatment ONCE
0.9% Sodium Chloride 1000 ml [Nss] 1,000 ml IV BOLUS
12/21/24 08:49
Complete Blood Count/With Diff Urgent
Comprehensive Metabolic Panel Urgent
12/21/24 12:59
Troponin I Urgent
Abnormal Lab Results
12/21/24
08:49
RBC 4.63 L 10^6/uL
(4.70-6.10)
MCH 32.0 H pg
(27.0-31.0)
Monocytes % 10.2 H %
(1.7-9.3)
Glucose 146 H mg/dl
(70-99)
ALT 77 H U/L
(0-50)
Total Protein 8.3 H g/dl
(6.3-8.2)
12/21/24 08:49
12/21/24 08:49
Vital Signs
Initial and Last Documented VS:
Initial Vital Signs
Temp Pulse Resp BP Pulse Ox
98 F 85 18 147/86 99
12/21/24 07:25 12/21/24 07:25 12/21/24 07:25 12/21/24 07:25 12/21/24 07:25
Last Documented Vital Signs
Temp Pulse Resp BP Pulse Ox
98 F 72 15 128/77 96
12/21/24 07:25 12/21/24 11:00 12/21/24 08:55 12/21/24 10:00 12/21/24 10:45
MDM/Problems Addressed
Differential Diagnosis Includes:
Patient presents with lightheadedness. EKG shows sinus rhythm. Will check orthostatics and labs. Consider electrolyte abnormality versus anemia versus arrhythmia or volume depletion. Will hydrate
*Pulse Oximetry
SaO2: 99
Oxygen Mode of Delivery: Room air
Patient hypoxic: no
*Critical Care Note
Total Time (30-74mins, 75-104mins- exclusive of procedures): Not Applicable
Update Note
Update Note:
No arrhythmias on monitor labs look well orthostatic vital signs without significant drop upon standing. He was hydrated. He was complaining and mentioned intermittent chest burning over the past several days. A troponin was added which was
undetectable. No indication for repeat or admission. Recommend he follow-up with his postpartum nurse for his lightheadedness. Stable for discharge
ED Attending Note
-
Portions of this chart may have been created with voice recognition software.� Occasional wrong word or��sound alike� substitutions may have occurred due to the inherent limitations of voice recognition software.
Discharge Plan
Departure
Patient Disposition: Home (Routine Discharge)
Date of Disposition: 12/21/24
Time of Disposition: 13:44
Patient with high blood pressure during this ER visit?: No
Discharge Problem:
Lightheadedness
Prescriptions:
No Action
alprazolam 0.25 MG tablet
0.25 mg PO BIDPRN MDD P PRN (Reason: ANXIETY)
atorvastatin 20 mg Tablet
20 mg PO DAILY
amlodipine 10 mg tablet
10 mg PO DAILY Qty: 30 0RF
Referrals:
Toya Nails DO [Family Provider, Family Practice]
Activity Restrictions/Additional Instructions:
Stay hydrated. Limit alcohol use. Follow-up with your postpartum nurse. Return if worse otherwise
Interventions
Interventions:
*Risk Screen - Suicide Last Done: 12/21/24 07:25
*General Assessment Last Done: 12/21/24 07:25
*Neglect/Abuse Screening Last Done: 12/21/24 07:25
*ED COVID-19 Vaccine History Last Done: 12/21/24 07:25
*ED Influenza Vaccine History Last Done: 12/21/24 07:25
ED- Neurological Assessment Last Done: 12/21/24 11:03
ED- Cardiac Assessment Last Done: 12/21/24 11:03
Discharge Date and Time
Print Language: LITHUANIAN
[2024-12-21] MEDS: NSS 1000 IV (08:58)
[2024-12-21 09:02] LABS: Hematocrit 42.4 % (39.0-52.0); Hemoglobin 14.8 g/dL (13.0-18.0); Mean Corp Hgb Conc. 34.9 g/dL (33.0-37.0); Mean Corpuscular Volume 91.6 fL (80.0-94.0); Nucleated Red Blood Cells % 0 % (-); Platelet Count 160 10^3/uL (130-400); Red Cell Dist. Width 13.2 % (11.5-14.5)
[2024-12-21 09:23] LABS: ALT (SGPT) 77 U/L (0-50); AST (SGOT) 59 U/L (17-59); Albumin 4.7 g/dl (3.5-5.0); Alkaline Phosphatase 64 U/L (38-126); Blood Urea Nitrogen 12 mg/dl (9-20); Calcium 9.6 mg/dl (8.4-10.2); Carbon Dioxide 26 mmol/L (22-30); Chloride 106 mmol/L (98-107); Estimated Creatinine Clearance 105 ml/min; Glucose 146 mg/dl (70-99); Potassium 4.3 mmol/L (3.5-5.1); Sodium 143 mmol/L (135-145); Total Protein 8.3 g/dl (6.3-8.2); eGFR > 60.00
[2024-12-21 13:34] LABS: Troponin I < 0.012 ng/ml
== END 2024-12-21 14:39 | disposition home or self-care (01) ==
LOC: EMR 07:15
PROVIDERS: Physician Assistant; EMERGENCY PHYSICIAN Student in an Organized Health Care Education/Training Program; FAMILY PHYSICIAN Internal Medicine
DX: R42 Dizziness and giddiness (principal); E78.00 Pure hypercholesterolemia, unspecified; I10 Essential (primary) hypertension; F17.200 Nicotine dependence, unspecified, uncomplicated
CPT/HCPCS: 96360; 99284; 80053; 84484; 85025; 93005